=== PATIENT | female | born 1990 | race Caucasian/White ===

== ENCOUNTER 2022-06-12 19:42 | Inpatient (IN) ==
[2022-06-12] MEDS ORDERED: OXYTOCIN 30 UNITS/500 ML BAG IV PRN (22:38)
[2022-06-12] MEDS ORDERED: LIDOCAINE 1% LOCAL 20 ML VIAL INFIL PRN (22:38)
--- NOTE | 2022-06-12 22:41 | History & Physical Report ---
Date of Service June 12, 2022 Assessment & Plan (1) with 38 completed weeks gestation: (2) Normal labor: Plan admit for labor. epidural per request. fetus category one. arom/pit as indicated. anticipate . History of Present Illness Chief Complaint: contractions Primary Care Provider: NO PCP Patient is a 31yowf wtih iup at 38 4/7 weeks who presents to labor and delivery with contractions, painful. +fm. no lof/vb. and Delivery Plans COVID POSITIVE 01/22/22 HOME TEST (SX STARTED ) anatomy us efw >98%--confirmed dating correct, akh *Growth US at 32wks - EFW 61% Moderna COVID vaccination *09/11/20 *10/07/20 *boosted 07/05/21 Rubella equivocal - needs MMR after delivery Flu vaccine given 05/08/22- OB Labs: Blood Type O Positive 11/12/21 Antibody Screen NEGATIVE 11/12/21 Hemoglobin 10.8 g/dl (12.0-16.0) L 04/03/22 Hematocrit 32.2 % (34.1-44.9) L 04/03/22 Mean Corpuscular Volume 89.7 fL (80-100) 11/12/21 E Platelet Count 249 K/uL (130-400) 11/12/21 Rubella IgG Antibody Equivocal (Immune) L 11/12/21 Rapid Plasma Reagin Nonreactive (Nonreactive) 11/12/21 Hepatitis B Surface Antigen. 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--partner being tested--neg akh SMA-negative--mln Cfdna-low risk--mln gbs negative Allergies Allergy/AdvReac Type Severity Reaction Status Date / Time No Known Allergies Allergy Verified 06/12/22 11:22 Home Medications Medication Instructions Recorded Confirmed Type prenat.vits,leesa,[id number] 1 tab PO DAILY 11/04/21 06/12/22 History pyridoxine (vitamin B6) [Vitamin PO 12/09/21 06/12/22 History B-6] doxylamine succinate [Unisom PO 02/03/22 06/12/22 History (doxylamine)] ferrous sulfate 325 mg (65 mg 325 mg PO DAILY 04/15/22 06/12/22 History iron) tablet (Feosol) terconazole 0.4 % vaginal cream 1 appful vaginal ONCE 7 days #45 05/15/22 06/12/22 Rx grams Patient History Medical History Migraines Surgical History [place] teeth extracted Family History Father Hypertension Mother Migraines Grandmother (Maternal) Migraines Denies family history of Ovarian cancer Prostate cancer Breast cancer Lung cancer Colorectal cancer Uterine cancer Social History Smoking Status: Never smoker Second Hand Exposure: No; Hx Alcohol Use: No Hx Substance Use: No Preferred Language: Yoruba Communication Ability: Effective Automobile Body Repairer Helper Required: No Beliefs That Will Affect Care: None marital status: marital status details: Maxime Taylor (39) [phone] Current Living Situation: Spouse and Family Current Living Situation Comment: , 2 step children, 1 dog, 2 cats current occupational status: employed current occupation: Professor at [employer], [place] Other Information That Helps Us Care for You: No Feels Safe at Home: Yes Safety Concerns: Feels Safe At This Time Assistive Devices: Contacts and Glasses 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
[2022-06-12] MEDS: LACTATED RINGER'S 1,000 ML IV PRN (23:00)
[2022-06-12 23:03] LABS: Hematocrit (blood only) 32.5 % (34.1-44.9); Hemoglobin 11.5 g/dl (12.0-16.0); Mean Corpuscular Hgb Conc 35.4 g/dL (32.0-36.0); Mean Corpuscular Volume 93.4 fL (80.0-100.0); Mean Platelet Volume 10.2 fL (9.4-12.3); Platelet Count 159 K/uL (130-400); RDW Standard Deviation 44.2 fL (36.4-46.3); Red Blood Count 3.48 M/uL (3.93-5.22); White Blood Count 16.42 K/ul (4.8-10.8)
[2022-06-12] MEDS ORDERED: ePHEDrine sulfate 50 MG/ML AMP ONE (23:11)
[2022-06-12] MEDS ORDERED: fentaNYL citrate 100 MCG/2 ML VIAL ONE (23:12)
[2022-06-12] MEDS ORDERED: BUPIVACAINE 0.25% 30 ML VIAL ONE (23:12)
[2022-06-12] MEDS ORDERED: fentaNYL 2MCG/ML ROPIVACAINE 1.25MG/ML 100 ML BAG EPI ONE (23:12)
[2022-06-12] MEDS ORDERED: SODIUM CHLORIDE 0.9% INJ 10 ML VIAL ONE (23:12)
[2022-06-12] MEDS ORDERED: LIDOCAINE 2%/EPINEPHRINE 1:200,000 20 ML SDV ONE (23:12)
[2022-06-12] MEDS ORDERED: diphenhydrAMINE 50 MG/ML VIAL IV PRN (23:42)
[2022-06-12] MEDS ORDERED: ONDANSETRON INJ 2 MG/ML 2 ML VIAL IV PRN (23:42)
[2022-06-12] MEDS ORDERED: NALBUPHINE HCL INJ 10 MG/ML AMP IV PRN (23:42)
[2022-06-12] MEDS ORDERED: ePHEDrine sulfate 50 MG/ML AMP IV PRN (23:42)
[2022-06-12] MEDS ORDERED: fentaNYL 2MCG/ML ROPIVACAINE 1.25MG/ML 100 ML BAG EPI PRN (23:42)
[2022-06-12] MEDS ORDERED: NALOXONE HCL 1 MG in SODIUM CHLORIDE 0.9% 1000ML 1,000 ML IV PRN (23:42)
[2022-06-12] MEDS ORDERED: NALOXONE HCL 0.4 MG/1 ML VIAL/CARP IV PRN (23:42)
--- NOTE | 2022-06-12 23:43 | Anesthesiology Consultation ---
Date of Service June 12, 2022 Assessment & Plan ASA ASA2 Proposed Anesthesia Anesthesia Type: Labor Epidural Risk / Benefits Reviewed With: PT / POA / Parent / Guardian, Accepts Plan and Informed Consent Obtained History Height/Weight Height: 5 ft 8 in Weight: 79.651 kg Allergies Allergy/AdvReac Type Severity Reaction Status Date / Time No Known Allergies Allergy Verified 06/12/22 11:22 Medications Home Medications Medication Instructions Recorded Confirmed Last Taken prenat.vits,leesa,[id number] 1 tab PO DAILY 11/04/21 06/12/22 06/12/22 08:00 pyridoxine (vitamin B6) [Vitamin PO 12/09/21 06/12/22 06/12/22 08:00 B-6] doxylamine succinate [Unisom PO 02/03/22 06/12/22 Unknown (doxylamine)] ferrous sulfate 325 mg (65 mg 325 mg PO DAILY 04/15/22 06/12/22 06/12/22 08:00 iron) tablet (Feosol) terconazole 0.4 % vaginal cream 1 appful vaginal ONCE 7 days #45 05/15/22 Unknown grams Active Medications Generic Name Dose Route Start Last Admin Trade Name Freq PRN Reason Stop Dose Admin Lactated Ringer's 1,000 mls @ 125 mls/hr 06/12/22 22:38 06/13/22 00:09 Lr IV 06/14/22 22:37 125 mls/hr .Q8H PRN Administration L&D Protocol Protocol Past Medical History Medical History Migraines Exercise / Class Metabolic Activity II 4-5 Yardwork/Stairs/Walk up hill Past Family History Family History Father Hypertension Mother Migraines Grandmother (Maternal) Migraines Denies family history of Ovarian cancer Prostate cancer Breast cancer Lung cancer Colorectal cancer Uterine cancer Past Surgical History Surgical History [place] teeth extracted Past Anesthesia History No Hx of Anesthesia Complications and No Family Hx of Anesthesia Complications History of PONV No Hx of PONV and No Hx of Motion Sickness Social History Smoking Status: Never smoker Hx Alcohol Use: No Hx Substance Use: No substance use type: does not use Review of Systems denies fever/cough/ colds/ chest pain/ SOB/ HARLEY denies HARLEY Physical Exam Vital Signs Last Vital Signs Temp 36.6 C 06/12/22 19:51 Pulse 100 H 06/13/22 00:12 Resp 18 06/12/22 19:51 BP 95/54 L 06/13/22 00:12 Pulse Ox 98 06/13/22 00:12 ENMT Mouth: no TMJ abnormality and no dentition abnormality Thyromental Distance: > or= 3.5 Finger Breadths Mallampati Class: II Neck neck extension not limited Respiratory normal respiratory effort; no respiratory distress Auscultation: lungs clear to auscultation bilaterally Cardiovascular Rate/Rhythm: regular rate and regular rhythm Neurologic moves all extremities Psychiatric Orientation: alert and oriented x 3 Testing Laboratory Results 06/12/22 22:51
[2022-06-13] MEDS: LACTATED RINGER'S 1,000 ML IV PRN (00:09)
[2022-06-13] MEDS ORDERED: OXYTOCIN 30 UNITS/500 ML BAG IV PRN ×2 (01:00→06:48)
--- NOTE | 2022-06-13 01:02 | Labor Progress Brief Note ---
Date of Service June 13, 2022 Subjective comfortable after epidural. Assessment & Plan (1) Normal labor: Plan augment with arom and pit. Fetus category one. anticipate . Admission and Anticipated Discharge Date Admission Date: June 12, 2022 Physical Exam Physical Exam: cx--5/100/-2 toco--spaced since epidural efm--120s with mod variability, early decel with contractions, accels to 150s, +scal stim. Results & [facility] ([facility]) Vital Signs (Past 12 Hours) Vital Signs Temp Pulse Resp BP Pulse Ox 06/13/22 00:27 36.6 C 18 06/13/22 00:57 100 H 98 06/13/22 00:52 92 H 96 06/12/22 23:59 18 06/12/22 23:59 18 06/13/22 00:09 16 06/13/22 00:09 16 06/13/22 00:47 97 06/13/22 00:47 93 H 06/13/22 00:47 91 H 104/59 L 06/13/22 00:42 95 H 97 06/13/22 00:37 97 H 97 06/13/22 00:32 98 H 96 06/13/22 00:31 96 H 104/59 L 06/13/22 00:27 97 06/13/22 00:27 97 H 06/13/22 00:27 95 H 108/72 06/13/22 00:22 92 H 98 06/13/22 00:21 93 H 108/61 06/13/22 00:17 95 H 98 06/13/22 00:16 94 H 112/62 06/13/22 00:14 100 H 109/64 06/13/22 00:13 96 H 103/62 06/13/22 00:12 100 H 95/54 L 98 06/13/22 00:10 96 H 101/55 L 06/13/22 00:08 96 H 100/57 L 06/13/22 00:07 93 H 16 98 06/13/22 00:06 101 H 104/56 L 06/13/22 00:04 92 H 103/60 06/13/22 00:02 94 H 18 104/59 L 100 06/13/22 00:01 97 H 107/63 06/12/22 23:57 100 06/12/22 23:57 117 H 06/12/22 23:58 107 H 119/75 06/12/22 23:57 121 H 119/72 06/12/22 23:52 100 H 100 06/12/22 23:49 103 H 114/77 06/12/22 20:03 92 H 102/62 06/12/22 19:51 36.6 C 18 Coding Level of Care Code None Diagnoses Normal labor O80; Z37.9
[2022-06-13] MEDS ORDERED: ePHEDrine sulfate 50 MG/ML AMP ONE (02:11)
[2022-06-13] MEDS ORDERED: fentaNYL citrate 100 MCG/2 ML VIAL ONE (02:11)
[2022-06-13] MEDS ORDERED: SODIUM CHLORIDE 0.9% INJ 10 ML VIAL ONE (02:11)
[2022-06-13] MEDS ORDERED: fentaNYL 2MCG/ML ROPIVACAINE 1.25MG/ML 100 ML BAG EPI ONE (02:12)
[2022-06-13] MEDS ORDERED: BUPIVACAINE 0.25% 30 ML VIAL ONE (02:12)
[2022-06-13] MEDS ORDERED: LIDOCAINE 2%/EPINEPHRINE 1:200,000 20 ML SDV ONE (02:12)
--- NOTE | 2022-06-13 02:38 | Communication Note ---
Date of Service: June 13, 2022 pt c/o 10/10 pain diffusely through the abdomen. I decided to replace the epidural. sterile prep and drape and gloves. l3-l4 landmarks. 1% lido infilt rated. 17 gauge touey advanced to alonzo with air at 5cm. easy catheter thread to 12 cc. 2% lido with epi 4cc test dose. negative IT/IV. catheter secured. pt bolused with 5 cc 0.25% bupivicaine + 100 mcg fentanyl. pt reports improvement in pain.
[2022-06-13] MEDS ORDERED: DIPHTHERIA/TETANUS/PERTUSSIS 0.5 ML SYR/VIAL IM ONE (06:48)
[2022-06-13] MEDS ORDERED: HYDROCORTISONE ACETATE 25 MG SUPP PR PRN (06:48)
[2022-06-13] MEDS ORDERED: oxyCODONE/ACETAMINOPHEN 5mg/325mg TAB PO PRN (06:48)
[2022-06-13] MEDS ORDERED: ACETAMINOPHEN 325 MG TAB PO PRN (06:48)
[2022-06-13] MEDS ORDERED: BENZOCAINE 20% AER SPR 82.5 GM CAN EXT PRN (06:48)
--- NOTE | 2022-06-13 06:48 | Delivery Summary ---
Vaginal Delivery Summary Date of Service June 13, 2022 Vaginal Delivery Summary and 2nd Degree LAC Pre-operative Diagnosis: at 38 4/7 weeks labor Post-operative Diagnosis: same Procedure: epidural arom--clear second degree and right labial lac with repair EBL: 400cc Anesthesia: epidural Procedure: The patient presented to labor and delivery, walked and make cervical change. She was admitted and underwent epidural. Once comfotable, arom for clear fluid. She reached c/c/+2. The patient pushed for 30 minutes to deliver a viable male resitiuting to luke position. The baby began crying on the perineum. The nose and mouth were bulb suctioned on the perineum and the rest of the infant was then delivered without difficulty. The baby was vigorous. The nose and mouth were again bulb suctioned and the infant was placed in the maternal abdomen for drying and attention. Cord was clamped and cut at one minute of life. Cord blood and segment obtained. Placenta delivered spontaneous, intact with a three vessel cord. Cervix/sulci/rectum were intact. A second degree perineal laceration and right labial laceration were repaired in the normal standard fashion. Hemostasis obtained with dilute pitocin and fundal massage. Apgars were 8/10. Mother and baby doing well at the end of the delivery. [facility] [place] Vaginal Delivery Charge Delivery Type Details: and 2nd Degree LAC
[2022-06-13] MEDS: DOCUSATE SODIUM 100 MG CAP PO SCH ×2 (07:57→21:01)
[2022-06-13] MEDS: PRENATAL VITAMIN 1 TAB PO SCH (07:57)
--- NOTE | 2022-06-13 08:20 | Anesthesia Procedure Note ---
Date of Service June 13, 2022 Anesthesia Post Epidural Note Vital Signs Vital Signs: Temp Pulse Resp BP Pulse Ox 36.7 C 110 H 18 113/59 L 100 06/13/22 04:54 06/13/22 08:15 06/13/22 07:45 06/13/22 08:15 06/13/22 06:37 Pain Intensity Bilateral Abdomen: Pain Intensity: 3 Notes Mental Status: alert / awake / arousable and participated in evaluation Nausea / Vomiting: adequately controlled Pain: adequately controlled Airway Patency, RR, SpO2: stable & adequate BP & HR: stable & adequate Hydration State: stable & adequate Neuraxial Anesthesia: was administered and sensory block is resolving Anesthetic Complications: no major complications apparent and Pt Satisfied with anesthetic care Epidural: Removed without complications and With tip intact
[2022-06-13] MEDS: IBUPROFEN 600 MG TAB PO PRN ×2 (08:44→17:43)
[2022-06-14 06:03] LABS: Hematocrit (blood only) 28.8 % (34.1-44.9); Hemoglobin 9.9 g/dl (12.0-16.0)
[2022-06-14] MEDS: PRENATAL VITAMIN 1 TAB PO SCH (07:41)
[2022-06-14] MEDS: IBUPROFEN 600 MG TAB PO PRN (07:41)
[2022-06-14] MEDS: DOCUSATE SODIUM 100 MG CAP PO SCH (07:41)
--- NOTE | 2022-06-14 09:09 | Obstetrical Progress Note ---
Date of Service June 14, 2022 Assessment & Plan (1) Encounter for supervision of normal intrauterine in primigravida, antepartum: PPD#1 doing well. Desires DC home later today. ok. Pain controlled. Min lochia. No concerns. Reviewed DC instructions. Followup in office 6w. Subjective Ambulation: ambulating normally Voiding: no voiding problems Diet Tolerance:: regular diet Lochia:: Moderate Review of Systems All systems reviewed & are unremarkable except as noted in HPI & below Physical Exam Constitutional WD/WN, vitals as above no acute distress Respiratory normal respiratory effort Cardiovascular Rate/Rhythm: regular rate and regular rhythm Gastrointestinal (Abdomen) Inspection/Auscultation: abdomen normal to inspection; abdomen not distended Percussion/Palpation: abdomen soft Genitourinary OB Exam Abdomen: + fundal height Fundus: + firm; not tender Results & Data ([facility]) Vital Signs (Past 12 Hours) Vital Signs Temp Pulse Resp BP 06/14/22 03:20 36.8 C 89 18 103/63 06/13/22 23:10 36.6 C 85 18 97/62 L
[2022-06-14] MEDS ORDERED: MEASLES, MUMPS & RUBELLA VIRUS VIAL SQ ONE (13:11)
[2022-06-14] MEDS ORDERED: bisacodyL 5 MG TABEC PO SCH (20:00)
[2022-06-15] MEDS ORDERED: bisacodyL 10 MG SUPP PR PRN (06:48)
== END 2022-06-14 16:10 | disposition home or self-care (01) | DRG 807 ==
LOC: OPB 19:42 → 4S1 19:46 → 4E2 06-13 09:48
DX: Z37.0 Single live birth; Z3A.38 38 weeks gestation of pregnancy; O70.1 Second degree perineal laceration during delivery